=== PATIENT | male | born 1970 | race Caucasian/White ===

== ENCOUNTER 2017-01-19 18:48 | Observation (INO) | payer MEDICARE, MEDICAID ==
[~2017-01-19] VITALS: Ht 188 cm; Wt 119.2 kg
[~2017-01-19 18:48] MED LIST: ALBU8.5H5 INH; FAMO-79 PO; NASAL SPRAY NAS; PALI1.5T PO; RISP0.2518 PO
[2017-01-19 19:34] LABS: DAU SCREEN DISCLAIMER
[2017-01-19 19:41] LABS: HEMOGLOBIN 14.6 g/dL (13.7-18.0)
[2017-01-19 19:53] LABS: ASPARTATE AMINO TRANSFERASE 27 U/L (15-37); BLOOD UREA NITROGEN 12 mg/dL (7-18)
[2017-01-19] MEDS ORDERED: FAMO40TA61 PO (19:57)
[2017-01-19 20:00] LABS: ACETAMINOPHEN < 2 mcg/mL (10-30)
[2017-01-20] MEDS ORDERED: FAMOTIDINE 20 MG TABLET ONE (01:58)
[2017-01-20] MEDS ORDERED: FAMOTIDINE 20 MG TABLET PO ONE (02:00)
[2017-01-20 09:42] VITALS: BP 120/80
[2017-01-21] MEDS ORDERED: FAMOTIDINE 20 MG TABLET PO ONE (02:30)
[2017-01-21] MEDS ORDERED: ZIPRASIDONE 20 MG INJ IM ONE ×4 (02:30→20:00)
[2017-01-21] MEDS ORDERED: FAMOTIDINE 20 MG TABLET ONE (02:48)
[2017-01-21] MEDS ORDERED: SODIUM CHLORIDE NASAL SPRAY 45ML BOTTLE NAS ONE (10:30)
[2017-01-21] MEDS ORDERED: POLYETHYLENE GLYCOL 17 GM PACKET PO PRN (10:30)
[2017-01-21] MEDS ORDERED: ACETAMINOPHEN 325 MG TABLET PO PRN (10:30)
[2017-01-21] MEDS ORDERED: NASAL SPRAY MC SCH (11:30)
[2017-01-21 11:52] VITALS: BP 120/80
[2017-01-21] MEDS: FAMOTIDINE 40 MG TABLET PO SCH (12:18)
[2017-01-21 19:42] VITALS: BP 120/78
[2017-01-22 06:04] LABS: HEMOGLOBIN 15.7 g/dL (13.7-18.0)
[2017-01-22 06:33] LABS: ASPARTATE AMINO TRANSFERASE 23 U/L (15-37); BLOOD UREA NITROGEN 18 mg/dL (7-18)
[2017-01-22 07:56] VITALS: BP 127/88
[2017-01-22] MEDS: FAMOTIDINE 40 MG TABLET PO SCH ×2 (08:20→22:16)
[2017-01-22] MEDS: SENNA/DOCUSATE TABLET PO SCH (08:21)
[2017-01-22] MEDS: ZIPRASIDONE 20 MG INJ IM PRN (18:24)
[2017-01-22 19:54] VITALS: BP 120/78
[2017-01-23 07:36] VITALS: BP 128/66
[2017-01-23] MEDS: SENNA/DOCUSATE TABLET PO SCH (08:16)
[2017-01-23] MEDS: FAMOTIDINE 40 MG TABLET PO SCH ×2 (08:17→20:11)
[2017-01-23] MEDS: ZIPRASIDONE 20 MG INJ IM PRN ×2 (08:50→20:14)
[2017-01-23 19:20] VITALS: BP 138/87
[2017-01-24 07:43] VITALS: BP 125/84
[2017-01-24] MEDS: FAMOTIDINE 40 MG TABLET PO SCH ×2 (07:46→20:49)
[2017-01-24] MEDS: SENNA/DOCUSATE TABLET PO SCH (08:08)
[2017-01-24] MEDS: LORazepam 1MG TABLET PO PRN (08:54)
[2017-01-24 19:19] VITALS: BP 144/90
[2017-01-24] MEDS: ZIPRASIDONE 20 MG INJ IM PRN (20:50)
[2017-01-25] MEDS: LORazepam 1MG TABLET PO PRN (06:23)
[2017-01-25 07:55] VITALS: BP 127/79
[2017-01-25] MEDS: ZIPRASIDONE 20 MG INJ IM PRN (08:13)
[2017-01-25] MEDS: FAMOTIDINE 40 MG TABLET PO SCH ×2 (08:13→20:55)
[2017-01-25] MEDS: SENNA/DOCUSATE TABLET PO SCH (08:13)
[2017-01-25] MEDS ORDERED: PALI234D IM (10:41)
[2017-01-25] MEDS ORDERED: LORazepam 2 MG/ML, 1ML IM PRN (12:00)
[2017-01-25 19:35] VITALS: BP 132/89
[2017-01-25] MEDS: ARIPIPRAZOLE 10 MG TABLET PO SCH (20:24)
[2017-01-26 07:31] VITALS: BP 131/88
[2017-01-26] MEDS: FAMOTIDINE 40 MG TABLET PO SCH ×2 (08:15→20:18)
[2017-01-26] MEDS: SENNA/DOCUSATE TABLET PO SCH (08:15)
[2017-01-26] MEDS: ARIPIPRAZOLE 10 MG TABLET PO SCH ×2 (08:15→20:18)
[2017-01-26] MEDS: ZIPRASIDONE 20 MG INJ IM PRN ×2 (08:36→23:44)
[2017-01-26 19:42] VITALS: BP 133/90
[2017-01-27 07:16] VITALS: BP 126/81
[2017-01-27] MEDS: ARIPIPRAZOLE 10 MG TABLET PO SCH ×2 (08:25→22:16)
[2017-01-27] MEDS: ZIPRASIDONE 20 MG INJ IM PRN ×2 (08:25→20:20)
[2017-01-27] MEDS: SENNA/DOCUSATE TABLET PO SCH (08:25)
[2017-01-27] MEDS: FAMOTIDINE 40 MG TABLET PO SCH ×2 (08:25→22:15)
[2017-01-27] MEDS: LORazepam 2 MG/ML, 1ML IM PRN (18:10)
[2017-01-27 19:16] VITALS: BP 131/89
[2017-01-28 07:53] VITALS: BP 114/88
[2017-01-28] MEDS: ARIPIPRAZOLE 10 MG TABLET PO SCH (08:34)
[2017-01-28] MEDS: ZIPRASIDONE 20 MG INJ IM PRN (08:43)
[2017-01-28] MEDS: FAMOTIDINE 40 MG TABLET PO SCH ×2 (08:44→21:00)
[2017-01-28] MEDS: SENNA/DOCUSATE TABLET PO SCH (08:45)
[2017-01-28] MEDS ORDERED: OLANZAPINE 10 MG INJ IM PRN (17:00)
[2017-01-28] MEDS: LORazepam 2 MG/ML, 1ML IM SCH (17:38)
[2017-01-28 20:00] VITALS: BP 122/80
[2017-01-28] MEDS: ZIPRASIDONE 20 MG INJ IM SCH ×2 (20:17→21:10)
[2017-01-28] MEDS: LORazepam 2 MG/ML, 1ML IM PRN (20:28)
[2017-01-28] MEDS ORDERED: ZIPRASIDONE 20 MG INJ IM SCH (21:00)
[2017-01-28] MEDS ORDERED: ARIPIPRAZOLE 15 MG TABLET PO SCH (21:00)
[2017-01-29] MEDS: OLANZAPINE 10 MG INJ IM PRN ×2 (00:40→15:28)
[2017-01-29] MEDS: LORazepam 2 MG/ML, 1ML IM PRN (00:41)
[2017-01-29 08:24] VITALS: BP 116/76
[2017-01-29] MEDS: LORazepam 2 MG/ML, 1ML IM SCH ×2 (08:32→20:19)
[2017-01-29] MEDS: ZIPRASIDONE 20 MG INJ IM SCH ×2 (08:32→20:19)
[2017-01-29] MEDS: SENNA/DOCUSATE TABLET PO SCH (08:33)
[2017-01-29] MEDS: FAMOTIDINE 40 MG TABLET PO SCH ×2 (08:33→21:00)
[2017-01-29 19:38] VITALS: BP 108/75
[2017-01-30] MEDS: LORazepam 2 MG/ML, 1ML IM PRN (01:12)
[2017-01-30 07:55] VITALS: BP 118/78
[2017-01-30] MEDS: ZIPRASIDONE 20 MG INJ IM SCH ×2 (08:04→20:40)
[2017-01-30] MEDS: LORazepam 2 MG/ML, 1ML IM SCH ×2 (08:05→20:40)
[2017-01-30] MEDS: SENNA/DOCUSATE TABLET PO SCH (08:11)
[2017-01-30] MEDS: FAMOTIDINE 40 MG TABLET PO SCH ×2 (08:12→20:40)
[2017-01-30 19:36] VITALS: BP 143/96
[2017-01-31 07:15] VITALS: BP 127/90
[2017-01-31] MEDS: ZIPRASIDONE 20 MG INJ IM SCH (08:25)
[2017-01-31] MEDS: SENNA/DOCUSATE TABLET PO SCH (08:27)
[2017-01-31] MEDS: LORazepam 2 MG/ML, 1ML IM SCH (08:29)
[2017-01-31] MEDS: FAMOTIDINE 40 MG TABLET PO SCH (09:00)
[2017-01-31] MEDS: OLANZAPINE 10 MG INJ IM PRN (11:32)
[2017-01-31] MEDS ORDERED: ARIPIPRAZOLE 15 MG TABLET PO ONE (14:52)
[2017-02-01] MEDS ORDERED: ARIPIPRAZOLE 15 MG TABLET PO SCH (09:00)
[2017-02-03] MEDS ORDERED: ARIPIPRAZOLE 400 MG INJ NC IM PRN (18:30)
== END 2017-01-31 17:27 ==
LOC: ED 22:10 → EDIP 01-21 09:08 → 3E 01-21 10:41
PROVIDERS: ADMIT Hospitalist; ATTEND Hospitalist
DX: R45.851 Suicidal ideations (principal); F20.0 Paranoid schizophrenia; E66.9 Obesity, unspecified; F15.159 Other stimulant abuse with stimulant-induced psychotic disorder, unspecified; R45.850 Homicidal ideations; F15.10 Other stimulant abuse, uncomplicated; E16.2 Hypoglycemia, unspecified; K58.9 Irritable bowel syndrome, unspecified; J44.9 Chronic obstructive pulmonary disease, unspecified; F12.10 Cannabis abuse, uncomplicated; Z98.890 Other specified postprocedural states; Z87.891 Personal history of nicotine dependence
CPT/HCPCS: 36415; 80053; 80307; 80329; 84439; 84443; 85025; 85610; 93005; 96372; 99285; G0378; J2060; J3486; G0480

== ENCOUNTER 2017-06-07 01:04 | Emergency (ER) | payer MEDICARE, MEDICAID ==
[~2017-06-07] VITALS: Ht 188 cm; Wt 115.9 kg
[~2017-06-07 01:04] MED LIST changes: +FAMO40TA61 PO; +PALI234D IM
[2017-06-07 01:05] VITALS: BP 152/88
[2017-06-07] MEDS ORDERED: ZIPRASIDONE 20 MG INJ IM ONE ×2 (02:00→02:31)
== END 2017-06-07 03:08 | disposition left against medical advice (07) ==
LOC: ED 02:50
DX: R10.30 Lower abdominal pain, unspecified (principal); R30.0 Dysuria
CPT/HCPCS: 81003; 99283

== ENCOUNTER 2017-10-24 14:45 | Emergency (ER) | payer MEDICARE, MEDICAID ==
[~2017-10-24] VITALS: Ht 188 cm; Wt 110.9 kg
[2017-10-24 15:16] VITALS: BP 130/82
[2017-10-24] MEDS ORDERED: BACITRACIN ZINC OINT 500U/GM, 0.9 GM ONE ×2 (16:05→16:20)
== END 2017-10-24 16:37 | disposition home or self-care (01) ==
LOC: ED 16:25
DX: L03.012 Cellulitis of left finger (principal); J44.9 Chronic obstructive pulmonary disease, unspecified; F17.210 Nicotine dependence, cigarettes, uncomplicated
CPT/HCPCS: 99283

== ENCOUNTER 2018-02-13 00:42 | Emergency (ER) | payer MEDICARE, MEDICAID ==
[~2018-02-13] VITALS: Ht 188 cm; Wt 100.3 kg
[2018-02-13 01:23] VITALS: BP 111/74
== END 2018-02-13 02:09 | disposition left against medical advice (07) ==
LOC: ED 02:03
DX: J06.9 Acute upper respiratory infection, unspecified (principal); J44.9 Chronic obstructive pulmonary disease, unspecified; Z72.89 Other problems related to lifestyle; Z75.9 Unspecified problem related to medical facilities and other health care
CPT/HCPCS: 99281

== ENCOUNTER 2018-02-14 18:33 | Inpatient (IN) | payer MEDICARE, MEDICAID ==
[~2018-02-14] VITALS: Ht 188 cm; Wt 101.7 kg
[2018-02-14] MEDS ORDERED: LIDOCAINE 1%, 10ML INFIL ONE (20:00)
[2018-02-14] MEDS ORDERED: LIDOCAINE-MPF 1%, 5ML ONE (21:33)
[2018-02-14] MEDS ORDERED: morphine SULFATE 10 MG/ML, 1ML IVPush ONE (23:30)
[2018-02-14] MEDS ORDERED: morphine SULFATE 10 MG/ML, 1ML ONE (23:31)
[2018-02-15] MEDS ORDERED: ONDANSETRON ODT 4 MG PO PRN (00:30)
[2018-02-15] MEDS ORDERED: ACETAMINOPHEN 325 MG TABLET PO PRN (00:30)
[2018-02-15] MEDS ORDERED: BISACODYL 10 MG SUPP PR PRN (00:30)
[2018-02-15] MEDS ORDERED: POLYETHYLENE GLYCOL 17 GM PACKET PO PRN (00:30)
[2018-02-15 00:42] VITALS: BP 132/77
[2018-02-15] MEDS: OXYcodone IR 5MG TABLET PO PRN (01:21)
[2018-02-15] MEDS ORDERED: MORPHINE SULFATE 4 MG/ML, 1ML ONE ×5 (04:11→20:39)
[2018-02-15] MEDS: morphine SULFATE 10 MG/ML, 1ML IVPush PRN ×5 (04:15→20:46)
[2018-02-15 04:44] VITALS: BP 116/70
[2018-02-15 05:15] LABS: BASOPHILS # (AUTO) 0.04 x10^3/uL (0-0.1); BASOPHILS % (AUTO) 0 % (0-1); EOSINOPHILS % (AUTO) 1 % (1-7); LYMPHOCYTES # (AUTO) 1.62 x10^3/uL (1-3.4); LYMPHOCYTES % (AUTO) 18 % (22-44); MD NO; MEAN CORPUSCULAR HEMOGLOBIN 31.5 pg (27.5-34.5); MEAN CORPUSCULAR HGB CONC 34.3 g/dL (33.2-36.2); MEAN CORPUSCULAR VOLUME 92.1 fL (81-97); MEAN PLATELET VOLUME 7.9 fL (7.4-10.4); MONOCYTES # (AUTO) 0.93 x10^3/uL (0.2-0.8); MONOCYTES % (AUTO) 10 % (2-9); NEUTROPHILS # (AUTO) 6.38 x10^3/uL (1.8-6.8); NEUTROPHILS % (AUTO) 70 % (42-75); PLATELET COUNT 240 x10^3/uL (130-400); RED BLOOD COUNT 4.86 x10^6/uL (4.38-5.82); RED CELL DISTRIBUTION WIDTH 14.2 % (9.4-14.8)
[2018-02-15 05:27] LABS: ALBUMIN 3.1 g/dL (3.4-5.0); ANION GAP 7 mmol/L (5-15); CALCIUM 8.6 mg/dL (8.5-10.1); CHLORIDE 108 mmol/L (98-107)
[2018-02-15 05:32] LABS: ALANINE AMINOTRANSFERASE 173 U/L (12-78); ALKALINE PHOSPHATASE 81 U/L (45-117); BILIRUBIN,TOTAL 0.7 mg/dL (0.2-1.0); CREATININE 1.06 mg/dL (0.7-1.3)
[2018-02-15] MEDS: SENNA/DOCUSATE TABLET PO SCH (09:00)
[2018-02-15] MEDS: POLYTRIM OPHTH 10ML RIGHTEYE SCH ×3 (11:50→20:47)
[2018-02-15] MEDS: SODIUM CHLORIDE FLUSH 10ML SYR IVF SCH ×2 (11:51→21:00)
[2018-02-15 13:25] VITALS: BP 112/55
[2018-02-15 19:59] VITALS: BP 120/61
[2018-02-16 02:07] VITALS: BP 131/67
[2018-02-16 05:38] LABS: BASOPHILS # (AUTO) 0.02 x10^3/uL (0-0.1); BASOPHILS % (AUTO) 0 % (0-1); EOSINOPHILS # (AUTO) 0.17 x10^3/uL (0-0.4); EOSINOPHILS % (AUTO) 2 % (1-7); LYMPHOCYTES # (AUTO) 1.74 x10^3/uL (1-3.4); LYMPHOCYTES % (AUTO) 23 % (22-44); MD NO; MEAN CORPUSCULAR HEMOGLOBIN 31.7 pg (27.5-34.5); MEAN CORPUSCULAR HGB CONC 34.2 g/dL (33.2-36.2); MEAN CORPUSCULAR VOLUME 92.7 fL (81-97); MEAN PLATELET VOLUME 7.8 fL (7.4-10.4); MONOCYTES # (AUTO) 0.63 x10^3/uL (0.2-0.8); MONOCYTES % (AUTO) 8 % (2-9); NEUTROPHILS # (AUTO) 4.94 x10^3/uL (1.8-6.8); NEUTROPHILS % (AUTO) 66 % (42-75); PLATELET COUNT 198 x10^3/uL (130-400)
[2018-02-16 05:46] LABS: ALBUMIN 2.8 g/dL (3.4-5.0); ANION GAP 7 mmol/L (5-15); CALCIUM 8.3 mg/dL (8.5-10.1); CHLORIDE 111 mmol/L (98-107)
[2018-02-16 05:49] LABS: ALANINE AMINOTRANSFERASE 164 U/L (12-78); ALKALINE PHOSPHATASE 76 U/L (45-117); BILIRUBIN,TOTAL 0.5 mg/dL (0.2-1.0); CREATININE 0.83 mg/dL (0.7-1.3); TOTAL PROTEIN 6.6 g/dL (6.4-8.2)
[2018-02-16 06:37] VITALS: BP 117/76
[2018-02-16] MEDS ORDERED: MORPHINE SULFATE 4 MG/ML, 1ML ONE ×3 (07:29→21:00)
[2018-02-16] MEDS: morphine SULFATE 10 MG/ML, 1ML IVPush PRN ×3 (07:36→21:18)
[2018-02-16] MEDS: SODIUM CHLORIDE FLUSH 10ML SYR IVF SCH ×2 (07:36→21:18)
[2018-02-16] MEDS: POLYTRIM OPHTH 10ML RIGHTEYE SCH (07:36)
[2018-02-16] MEDS: SENNA/DOCUSATE TABLET PO SCH (09:00)
[2018-02-16] MEDS ORDERED: LIDOCAINE-MPF 1%, 2ML ONE (11:09)
[2018-02-16] MEDS ORDERED: MUPIROCIN OINT 2%, 22GM ONE (11:09)
[2018-02-16] MEDS ORDERED: BALANCED SALT OPHTH IRRIG SOLN 18ML ONE (11:09)
[2018-02-16] MEDS ORDERED: BACITRACIN OINT 500U/GM, 15 GM ONE (11:09)
[2018-02-16] MEDS ORDERED: OXYMETAZOLINE NASAL SPRAY 0.05%, 15ML ONE (11:10)
[2018-02-16] MEDS ORDERED: EPINEPHRINE 1 MG/ML, 1ML ONE (11:10)
[2018-02-16] MEDS ORDERED: COCAINE TOPICAL SOLN 4%, 4ML ONE (11:10)
[2018-02-16] MEDS ORDERED: GABAPENTIN 300 MG CAPSULE PO ONE (11:35)
[2018-02-16] MEDS ORDERED: GABAPENTIN 300 MG CAPSULE ONE (11:44)
[2018-02-16] MEDS ORDERED: ONDANSETRON ODT 8 MG ONE (11:45)
[2018-02-16] MEDS ORDERED: OxyconTIN ER 10 MG TAB.ER ONE (11:46)
[2018-02-16] MEDS ORDERED: MIDAZOLAM 1 MG/ML, 2ML ONE (11:52)
[2018-02-16] MEDS ORDERED: FENTANYL PF 250 MCG/5ML ONE (11:52)
[2018-02-16] MEDS ORDERED: LIDOCAINE GEL 2%, 5ML ONE (11:53)
[2018-02-16] MEDS ORDERED: GLYCOPYRROLATE 0.2MG/1ML, 5ML ONE (11:56)
[2018-02-16] MEDS ORDERED: OxyconTIN ER 10 MG TAB.ER PO ONE (12:00)
[2018-02-16] MEDS ORDERED: ONDANSETRON ODT 8 MG PO ONE (12:00)
[2018-02-16] MEDS ORDERED: CEFAZOLIN 1,000 MG ONE (12:07)
[2018-02-16] MEDS ORDERED: DEXAMETHASONE 4 MG/ML, 1ML ONE (12:07)
[2018-02-16] MEDS ORDERED: LIDOCAINE-MPF 2% ,5ML ONE (12:07)
[2018-02-16] MEDS ORDERED: PROPOFOL 10 MG/ML, 20ML ONE (12:07)
[2018-02-16] MEDS ORDERED: ONDANSETRON 2MG/ML, 2ML ONE (12:07)
[2018-02-16] MEDS ORDERED: SUCCINYLCHOLINE 20 MG/ML, 10ML ONE (12:08)
[2018-02-16] MEDS ORDERED: PROMETHAZINE 25 MG/ML, 1ML IV PRN (12:30)
[2018-02-16] MEDS ORDERED: MEPERIDINE/PF 25MG/0.5ML IVPush PRN (12:30)
[2018-02-16] MEDS ORDERED: morphine SULFATE 10 MG/ML, 1ML IV PRN (12:30)
[2018-02-16] MEDS ORDERED: OXYcodone 5 MG/5 ML ORAL.SOL UDC PO PRN (12:30)
[2018-02-16] MEDS ORDERED: LABETALOL 5MG/ML, 20ML IV PRN (12:30)
[2018-02-16] MEDS ORDERED: ONDANSETRON ODT 4 MG PO PRN (12:30)
[2018-02-16] MEDS ORDERED: ALBUTEROL/IPRATROPIUM 2.5MG/0.5MG, 3 ML NPPB PRN (12:30)
[2018-02-16] MEDS ORDERED: DIAZEPAM 5 MG/ML, 2ML IVPush PRN (12:30)
[2018-02-16] MEDS ORDERED: ONDANSETRON 2MG/ML, 2ML IVPush PRN (12:30)
[2018-02-16] MEDS ORDERED: hydrALAzine 20 MG/ML, 1ML IV PRN (12:30)
[2018-02-16] MEDS ORDERED: MIDAZOLAM 1 MG/ML, 2ML IV PRN (12:30)
[2018-02-16] MEDS ORDERED: LORazepam 2 MG/ML, 1ML IVPush PRN (12:30)
[2018-02-16] MEDS ORDERED: ALBUTEROL SULFATE 2.5 MG/3 ML NPPB PRN (12:30)
[2018-02-16] MEDS ORDERED: EYE STREAM RIGHTEYE ONE (12:31)
[2018-02-16] MEDS ORDERED: OXYMETAZOLINE NASAL SPRAY 0.05%, 15ML NAS ONE (12:32)
[2018-02-16] MEDS ORDERED: FENTANYL PF 100 MCG/2ML ONE ×2 (12:55→14:15)
[2018-02-16] MEDS: FENTANYL PF 100 MCG/2ML IV PRN ×2 (14:18→14:29)
[2018-02-16 15:24] VITALS: BP 113/68
[2018-02-16] MEDS ORDERED: ALBUTEROL HFA 90 MCG/SPRAY INH PRN (15:30)
[2018-02-16] MEDS ORDERED: RISPERIDONE MC SCH ×2 (16:00)
[2018-02-16] MEDS ORDERED: PALIPERIDONE MC SCH ×2 (16:00)
[2018-02-16 19:28] VITALS: BP 110/66
[2018-02-16] MEDS: FAMOTIDINE 40 MG TABLET PO SCH (21:17)
[2018-02-17 01:29] VITALS: BP 127/79
[2018-02-17] MEDS ORDERED: MORPHINE SULFATE 4 MG/ML, 1ML ONE (02:20)
[2018-02-17] MEDS: morphine SULFATE 10 MG/ML, 1ML IVPush PRN (02:24)
[2018-02-17 07:02] VITALS: BP 108/55
[2018-02-17] MEDS: OXYcodone IR 5MG TABLET PO PRN ×2 (08:41→21:12)
[2018-02-17] MEDS: SENNA/DOCUSATE TABLET PO SCH (08:41)
[2018-02-17] MEDS: FAMOTIDINE 40 MG TABLET PO SCH ×2 (08:41→21:13)
[2018-02-17] MEDS: SODIUM CHLORIDE FLUSH 10ML SYR IVF SCH ×2 (08:41→21:13)
[2018-02-17 15:48] VITALS: BP 103/58
[2018-02-17 19:28] VITALS: BP 111/68
[2018-02-18 03:55] VITALS: BP 112/68
[2018-02-18 05:50] LABS: BASOPHILS # (AUTO) 0.04 x10^3/uL (0-0.1); BASOPHILS % (AUTO) 1 % (0-1); EOSINOPHILS # (AUTO) 0.09 x10^3/uL (0-0.4); EOSINOPHILS % (AUTO) 1 % (1-7); LYMPHOCYTES # (AUTO) 2.19 x10^3/uL (1-3.4); LYMPHOCYTES % (AUTO) 25 % (22-44); MD NO; MEAN CORPUSCULAR HEMOGLOBIN 31.4 pg (27.5-34.5); MEAN CORPUSCULAR HGB CONC 33.9 g/dL (33.2-36.2); MEAN CORPUSCULAR VOLUME 92.6 fL (81-97); MEAN PLATELET VOLUME 8.1 fL (7.4-10.4); MONOCYTES # (AUTO) 0.69 x10^3/uL (0.2-0.8); MONOCYTES % (AUTO) 8 % (2-9); NEUTROPHILS # (AUTO) 5.84 x10^3/uL (1.8-6.8); NEUTROPHILS % (AUTO) 66 % (42-75); PLATELET COUNT 179 x10^3/uL (130-400); RED BLOOD COUNT 4.38 x10^6/uL (4.38-5.82); RED CELL DISTRIBUTION WIDTH 13.7 % (9.4-14.8)
[2018-02-18 05:57] LABS: ANION GAP 7 mmol/L (5-15); CHLORIDE 112 mmol/L (98-107)
[2018-02-18 05:58] LABS: CREATININE 0.87 mg/dL (0.7-1.3)
[2018-02-18 07:54] VITALS: BP 112/67
[2018-02-18] MEDS: FAMOTIDINE 40 MG TABLET PO SCH ×2 (09:14→20:43)
[2018-02-18] MEDS: SENNA/DOCUSATE TABLET PO SCH ×2 (09:14→09:28)
[2018-02-18] MEDS: SODIUM CHLORIDE FLUSH 10ML SYR IVF SCH ×2 (09:15→20:43)
[2018-02-18] MEDS: OXYcodone IR 5MG TABLET PO PRN ×2 (14:01→18:37)
[2018-02-18 20:50] VITALS: BP 108/64
[2018-02-19 08:00] VITALS: BP 137/90
[2018-02-19] MEDS: FAMOTIDINE 40 MG TABLET PO SCH (09:17)
[2018-02-19] MEDS: SODIUM CHLORIDE FLUSH 10ML SYR IVF SCH (09:19)
== END 2018-02-19 17:00 | disposition left against medical advice (07) | DRG 113 ==
LOC: ED 23:37 → EDIP 02-15 00:03 → 4NOR 02-15 00:25
PROVIDERS: ADMIT Hospitalist; ATTEND Hospitalist
PROC: 0HQ1XZZ Repair Face Skin, External Approach (ICD-10-PCS; 2018-02-15)
PROC: 0NSBXZZ Reposition Nasal Bone, External Approach (ICD-10-PCS; principal; 2018-02-16 11:45)
PROC: 0NSP04Z Reposition Right Orbit with Internal Fixation Device, Open Approach (ICD-10-PCS; 2018-02-16 11:45)
DX: S02.31XA Fracture of orbital floor, right side, initial encounter for closed fracture (principal); E44.0 Moderate protein-calorie malnutrition; F20.0 Paranoid schizophrenia; H11.31 Conjunctival hemorrhage, right eye; S01.01XA Laceration without foreign body of scalp, initial encounter; S02.2XXA Fracture of nasal bones, initial encounter for closed fracture; Z88.8 Allergy status to other drugs, medicaments and biological substances; Z68.28 Body mass index [BMI] 28.0-28.9, adult; F12.10 Cannabis abuse, uncomplicated; F41.1 Generalized anxiety disorder; I10 Essential (primary) hypertension; J32.9 Chronic sinusitis, unspecified; J44.9 Chronic obstructive pulmonary disease, unspecified; K58.9 Irritable bowel syndrome, unspecified; Y04.0XXA Assault by unarmed brawl or fight, initial encounter; Y93.89 Activity, other specified; Y92.89 Other specified places as the place of occurrence of the external cause; Y99.8 Other external cause status; Z59.0 Homelessness; Z86.72 Personal history of thrombophlebitis; Z87.891 Personal history of nicotine dependence; S01.81XA Laceration without foreign body of other part of head, initial encounter
CPT/HCPCS: 12013; 36415; 70450; 70486; 80048; 80053; 80074; 85025; 87521; 87806; 93005; 96374; 96376; C1713; J0171; J0690; J1100; J2250; J2405; J2704; J3010; J3490; Q0162; C1781; G0475; J0330; J2270

== ENCOUNTER 2018-12-08 19:08 | Emergency (ER) | payer MEDICARE, MEDICAID ==
[~2018-12-08] VITALS: Ht 188 cm; Wt 93.6 kg
--- NOTE | 2018-12-08 19:50 | NUR ---
PT PRESENTS TO ED WITH C/O RIGHT EYE PAIN AND BLURRED/DOUBLE VISION PRESENT AFTER EYE SURGERY 02/21 BUT WORSENING IN LAST 3-4 MONTHS. PT IS A&O, RESPS EVEN AND AND UNLABORED, RYAN. BRADEN DSOUZA AT BEDSIDE TO EVALUATE.
[2018-12-08] MEDS ORDERED: PROPARACAINE OPHTH 0.5%, 15ML ONE (19:56)
[2018-12-08 20:00] VITALS: BP 148/95
--- NOTE | 2018-12-08 20:17 | NUR ---
PT GIVEN DC INSTRUCTIONS. PT AOX4. RESPS EVEN AND UNLABORED. PT STATES EYE PAIN LEVEL REDUCED AT DC. PT AMB TO DC WITH STEADY GAIT. NO ACUTE DISTRESS AT DC.
== END 2018-12-08 20:18 | disposition home or self-care (01) ==
LOC: ED 20:17
DX: H10.021 Other mucopurulent conjunctivitis, right eye (principal); J44.9 Chronic obstructive pulmonary disease, unspecified; F29 Unspecified psychosis not due to a substance or known physiological condition; F20.0 Paranoid schizophrenia; Z72.9 Problem related to lifestyle, unspecified
CPT/HCPCS: 99283

== ENCOUNTER 2019-01-27 05:54 | Emergency (ER) | payer MEDICARE, MEDICAID ==
[~2019-01-27] VITALS: Ht 185.4 cm; Wt 81.0 kg
[2019-01-27 06:02] VITALS: BP 92/56
--- NOTE | 2019-01-27 06:13 | NUR ---
Pt uncooperative. Wants to harm himself and states the only way he knows how is to get naked and sleep under a bridge and now that it is getting warmer, it is harder to kill himself that way. Pt states he tried last week without success. Pt demanding pain medication and pepto-bismyl. Uncooperative with VS. Room cleared and secured. Belongings placed in locker.
[2019-01-27] MEDS ORDERED: PINK BISMUTH 87.33 MG/5 ML ORAL SUSP PO ONE (06:30)
[2019-01-27 06:37] LABS: BASOPHILS # (AUTO) 0.03 x10^3/uL (0-0.1); BASOPHILS % (AUTO) 1 % (0-1); EOSINOPHILS # (AUTO) 0.13 x10^3/uL (0-0.4); EOSINOPHILS % (AUTO) 2 % (1-7); LYMPHOCYTES # (AUTO) 1.26 x10^3/uL (1-3.4); LYMPHOCYTES % (AUTO) 22 % (22-44); MD NO; MEAN CORPUSCULAR HEMOGLOBIN 31.4 pg (27.5-34.5); MEAN CORPUSCULAR HGB CONC 34.1 g/dL (33.2-36.2); MEAN CORPUSCULAR VOLUME 92.1 fL (81-97); MEAN PLATELET VOLUME 7.8 fL (7.4-10.4); MONOCYTES # (AUTO) 0.62 x10^3/uL (0.2-0.8); MONOCYTES % (AUTO) 11 % (2-9); NEUTROPHILS # (AUTO) 3.72 x10^3/uL (1.8-6.8); NEUTROPHILS % (AUTO) 65 % (42-75); PLATELET COUNT 167 x10^3/uL (130-400); RED BLOOD COUNT 4.66 x10^6/uL (4.38-5.82); RED CELL DISTRIBUTION WIDTH 13.1 % (9.4-14.8)
--- NOTE | 2019-01-27 06:38 | NUR ---
SITTER AT DOOR FOR FREQUENT OBS
[2019-01-27 06:44] LABS: ALBUMIN 3.7 g/dL (3.4-5.0); ANION GAP 7 mmol/L (5-15); CALCIUM 8.4 mg/dL (8.5-10.1); CHLORIDE 110 mmol/L (98-107); CREATININE 0.81 mg/dL (0.7-1.3); SALICYLATE LEVEL < 1.7 mg/dL (2.8-20.0)
[2019-01-27 06:45] LABS: ACETAMINOPHEN < 2 mcg/mL (10-30)
[2019-01-27 08:00] LABS: AMPHETAMINE SCREEN, URINE Negative (Negative); BARBITURATE SCREEN, URINE Negative (Negative); BENZODIAZEPINE SCREEN, URINE Negative (Negative); CANNABINOID SCREEN, URINE Negative (Negative); COCAINE SCREEN, URINE Negative (Negative); METHADONE SCREEN, URINE Negative (Negative); OPIATE SCREEN, URINE Negative (Negative)
--- NOTE | 2019-01-27 08:13 | NUR ---
REC REPORT REQUESTED A SITTER PT RESTING
--- NOTE | 2019-01-27 10:00 | NUR ---
PT REMAINS SLEEEPING HAVE PROVIDED WARMING MEASURES PT COOPERATIVEN
--- NOTE | 2019-01-27 11:03 | NUR ---
SOC IN CONFERENCE W PT
== END 2019-01-27 12:00 | disposition home or self-care (01) ==
LOC: ED 06:13
DX: F33.1 Major depressive disorder, recurrent, moderate (principal); F15.10 Other stimulant abuse, uncomplicated; J44.9 Chronic obstructive pulmonary disease, unspecified; F41.9 Anxiety disorder, unspecified; F20.9 Schizophrenia, unspecified; F41.1 Generalized anxiety disorder
CPT/HCPCS: 36415; 80048; 80307; 80329; 82040; 85025; 99284; G0480

== ENCOUNTER 2019-04-14 03:10 | Inpatient (IN) | payer MEDICARE, MEDICAID ==
[~2019-04-14] VITALS: Ht 188 cm; Wt 90.1 kg
[2019-04-14] MEDS ORDERED: SODIUM CHLORIDE FLUSH 10ML SYR IVF ONE (03:30)
[2019-04-14] MEDS ORDERED: SODIUM CHLORIDE 0.9% 1,000ML IVBOLUS ONE (03:30)
--- NOTE | 2019-04-14 03:39 | NUR ---
PT TO US
[2019-04-14 03:50] LABS: BASOPHILS # (AUTO) 0.07 x10^3/uL (0-0.1); BASOPHILS % (AUTO) 1 % (0-1); EOSINOPHILS # (AUTO) 0.14 x10^3/uL (0-0.4); EOSINOPHILS % (AUTO) 1 % (1-7); LYMPHOCYTES % (AUTO) 13 % (22-44); MD NO; MEAN CORPUSCULAR HEMOGLOBIN 31.9 pg (27.5-34.5); MEAN CORPUSCULAR HGB CONC 33.4 g/dL (33.2-36.2); MEAN CORPUSCULAR VOLUME 95.4 fL (81-97); MEAN PLATELET VOLUME 7.9 fL (7.4-10.4); MONOCYTES # (AUTO) 0.97 x10^3/uL (0.2-0.8); MONOCYTES % (AUTO) 8 % (2-9); NEUTROPHILS # (AUTO) 8.86 x10^3/uL (1.8-6.8); NEUTROPHILS % (AUTO) 77 % (42-75); PLATELET COUNT 198 x10^3/uL (130-400); RED CELL DISTRIBUTION WIDTH 13.3 % (9.4-14.8)
[2019-04-14 03:57] LABS: ALANINE AMINOTRANSFERASE 67 U/L (12-78); ALBUMIN 3.4 g/dL (3.4-5.0); ANION GAP 6 mmol/L (5-15); CALCIUM 8.9 mg/dL (8.5-10.1); CHLORIDE 106 mmol/L (98-107); CREATININE 0.97 mg/dL (0.7-1.3)
[2019-04-14 03:59] LABS: ALKALINE PHOSPHATASE 75 U/L (45-117); BILIRUBIN,TOTAL 0.6 mg/dL (0.2-1.0); TOTAL PROTEIN 7.1 g/dL (6.4-8.2)
--- NOTE | 2019-04-14 04:57 | NUR ---
IV ESTABLISHED. PT MEDICATED PER EMAR. 5 RIGHTS ADDRESSED.
[2019-04-14] MEDS ORDERED: AMPICILLIN/SULBACTAM 3 GM in SODIUM CHLORIDE 0.9% 100 ML IV ONE (05:00)
[2019-04-14] MEDS ORDERED: VANCOMYCIN 1,800 MG in SODIUM CHLORIDE 0.9% 250 ML IV ONE (05:00)
[2019-04-14] MEDS ORDERED: VANCOMYCIN PER PHARMACY MC PRN (05:00)
--- NOTE | 2019-04-14 05:26 | NUR ---
REPORT TO HEIDI KWAN
[2019-04-14] MEDS: OXYcodone/APAP 5/325MG TABLET PO PRN (06:18)
[2019-04-14 06:31] VITALS: BP 146/97
[2019-04-14] MEDS ORDERED: SODIUM CHLORIDE 0.9% 1,000 ML IV SCH (07:53)
[2019-04-14] MEDS ORDERED: LABETALOL 5MG/ML, 20ML IVPush PRN (08:00)
[2019-04-14] MEDS ORDERED: ONDANSETRON ODT 4 MG PO PRN (08:00)
[2019-04-14] MEDS ORDERED: ONDANSETRON 2MG/ML, 2ML IVPush PRN (08:00)
[2019-04-14] MEDS: SENNA/DOCUSATE TABLET PO SCH (09:00)
[2019-04-14 10:15] LABS: FREE T4 (FREE THYROXINE) 1.14 ng/dL (0.76-1.46)
[2019-04-14 10:37] LABS: MICROSCOPIC NOT IND
[2019-04-14 10:38] LABS: CULTURE INDICATED? NO
[2019-04-14 10:48] LABS: AMPHETAMINE SCREEN, URINE Positive (Negative); BARBITURATE SCREEN, URINE Negative (Negative); BENZODIAZEPINE SCREEN, URINE Negative (Negative); CANNABINOID SCREEN, URINE Positive (Negative); COCAINE SCREEN, URINE Negative (Negative); METHADONE SCREEN, URINE Negative (Negative); OPIATE SCREEN, URINE Negative (Negative)
[2019-04-14] MEDS: CLINDAMYCIN PMX 900MG/50ML 50 ML IV SCH ×2 (12:17→20:05)
[2019-04-14] MEDS: PINK BISMUTH 87.33 MG/5 ML ORAL SUSP PO SCH ×3 (12:17→20:05)
[2019-04-14 17:15] VITALS: BP 126/80
[2019-04-14 20:39] VITALS: BP 106/65
[2019-04-15 02:25] VITALS: BP 106/68
[2019-04-15] MEDS: PINK BISMUTH 87.33 MG/5 ML ORAL SUSP PO SCH ×6 (04:00→20:57)
[2019-04-15] MEDS: CLINDAMYCIN PMX 900MG/50ML 50 ML IV SCH ×2 (04:28→12:05)
[2019-04-15 06:58] VITALS: BP 107/69
[2019-04-15 06:58] LABS: BASOPHILS # (AUTO) 0.05 x10^3/uL (0-0.1); BASOPHILS % (AUTO) 1 % (0-1); EOSINOPHILS % (AUTO) 3 % (1-7); LYMPHOCYTES # (AUTO) 1.95 x10^3/uL (1-3.4); LYMPHOCYTES % (AUTO) 21 % (22-44); MD NO; MEAN CORPUSCULAR HEMOGLOBIN 32.3 pg (27.5-34.5); MEAN CORPUSCULAR HGB CONC 33.6 g/dL (33.2-36.2); MEAN CORPUSCULAR VOLUME 96.4 fL (81-97); MEAN PLATELET VOLUME 8.1 fL (7.4-10.4); MONOCYTES # (AUTO) 0.93 x10^3/uL (0.2-0.8); MONOCYTES % (AUTO) 10 % (2-9); NEUTROPHILS # (AUTO) 6.07 x10^3/uL (1.8-6.8); NEUTROPHILS % (AUTO) 65 % (42-75); PLATELET COUNT 184 x10^3/uL (130-400); RED BLOOD COUNT 4.53 x10^6/uL (4.38-5.82); RED CELL DISTRIBUTION WIDTH 13.6 % (9.4-14.8)
[2019-04-15 07:11] LABS: ANION GAP 5 mmol/L (5-15); CALCIUM 8.7 mg/dL (8.5-10.1); CHLORIDE 111 mmol/L (98-107)
[2019-04-15 07:23] LABS: ALANINE AMINOTRANSFERASE 65 U/L (12-78); ALKALINE PHOSPHATASE 68 U/L (45-117); BILIRUBIN,TOTAL 0.7 mg/dL (0.2-1.0); CREATININE 0.74 mg/dL (0.7-1.3); TOTAL PROTEIN 7.2 g/dL (6.4-8.2)
[2019-04-15] MEDS: SENNA/DOCUSATE TABLET PO SCH (07:52)
[2019-04-15] MEDS: AMPICILLIN/SULBACTAM 3 GM in SODIUM CHLORIDE 0.9% 100 ML IV SCH ×2 (13:19→19:55)
[2019-04-15] MEDS ORDERED: VANCOMYCIN PER PHARMACY MC PRN (13:30)
[2019-04-15] MEDS ORDERED: PHARMACOKINETIC MONITORING MC PRN (13:30)
[2019-04-15 14:00] VITALS: BP 98/59
[2019-04-15] MEDS: VANCOMYCIN 1,800 MG in SODIUM CHLORIDE 0.9% 250 ML IV SCH (14:15)
[2019-04-15] MEDS: OXYcodone/APAP 5/325MG TABLET PO PRN (18:19)
[2019-04-15 19:30] VITALS: BP 97/64
[2019-04-16 00:51] VITALS: BP 104/72
[2019-04-16] MEDS: AMPICILLIN/SULBACTAM 3 GM in SODIUM CHLORIDE 0.9% 100 ML IV SCH ×4 (00:54→21:06)
[2019-04-16] MEDS: PINK BISMUTH 87.33 MG/5 ML ORAL SUSP PO SCH ×3 (00:54→07:45)
[2019-04-16] MEDS: VANCOMYCIN 1,800 MG in SODIUM CHLORIDE 0.9% 250 ML IV SCH ×2 (01:35→15:47)
[2019-04-16] MEDS: SENNA/DOCUSATE TABLET PO SCH (07:46)
[2019-04-16] MEDS: HEPARIN 5,000 UNITS/ML, 1ML SQ SCH ×2 (14:00→21:06)
[2019-04-16 21:01] VITALS: BP 111/72
[2019-04-17] MEDS: AMPICILLIN/SULBACTAM 3 GM in SODIUM CHLORIDE 0.9% 100 ML IV SCH ×3 (02:44→16:19)
[2019-04-17] MEDS: VANCOMYCIN 1,800 MG in SODIUM CHLORIDE 0.9% 250 ML IV SCH (03:34)
[2019-04-17] MEDS: HEPARIN 5,000 UNITS/ML, 1ML SQ SCH ×2 (06:00→14:00)
[2019-04-17 06:40] VITALS: BP 108/67
[2019-04-17] MEDS: SENNA/DOCUSATE TABLET PO SCH (09:00)
[2019-04-17] MEDS ORDERED: AMPI3VIA IV (15:10)
[2019-04-17 15:33] VITALS: BP 117/78
== END 2019-04-17 17:16 | disposition left against medical advice (07) | DRG 853 ==
LOC: ED 04:59 → EDIP 05:00 → 3NE 05:20
PROVIDERS: ADMIT Family Medicine; ATTEND Family Medicine
PROC: 0JBH0ZZ Excision of Left Lower Arm Subcutaneous Tissue and Fascia, Open Approach (ICD-10-PCS; principal; 2019-04-14)
DX: A41.9 Sepsis, unspecified organism (principal); G92 Toxic encephalopathy; L02.414 Cutaneous abscess of left upper limb; L03.114 Cellulitis of left upper limb; F20.0 Paranoid schizophrenia; T43.621A Poisoning by amphetamines, accidental (unintentional), initial encounter; E78.5 Hyperlipidemia, unspecified; F15.10 Other stimulant abuse, uncomplicated; F17.210 Nicotine dependence, cigarettes, uncomplicated; I10 Essential (primary) hypertension; J44.9 Chronic obstructive pulmonary disease, unspecified; K58.9 Irritable bowel syndrome, unspecified; B19.20 Unspecified viral hepatitis C without hepatic coma; R73.9 Hyperglycemia, unspecified; Z53.21 Procedure and treatment not carried out due to patient leaving prior to being seen by health care provider; Y92.89 Other specified places as the place of occurrence of the external cause; Z59.0 Homelessness; Z63.8 Other specified problems related to primary support group; Z86.72 Personal history of thrombophlebitis
CPT/HCPCS: 36415; 80053; 80307; 81003; 82550; 83605; 83735; 84100; 84145; 84439; 84443; 85025; 85651; 86140; 87040; 87070; 87147; 87205; 96365; G0378; J0295; J3370; J7030; J7050

== ENCOUNTER 2020-01-15 04:20 | Emergency (ER) | payer MEDICARE, MEDICAID ==
[~2020-01-15] VITALS: Ht 188 cm; Wt 91.4 kg
[~2020-01-15 04:20] MED LIST changes: +AMPI3VIA IV
[2020-01-15 04:39] VITALS: BP 136/82
[2020-01-15] MEDS ORDERED: FLUORESCEIN OPHTHALMIC 1 MG STRIP ONE (04:43)
[2020-01-15] MEDS ORDERED: PROPARACAINE OPHTH 0.5%, 15ML ONE (04:43)
[2020-01-15] MEDS ORDERED: FLUORESCEIN OPHTHALMIC 1 MG STRIP EACHEYE ONE (05:00)
[2020-01-15] MEDS ORDERED: PROPARACAINE OPHTH 0.5%, 15ML EACHEYE ONE (05:00)
== END 2020-01-15 05:56 ==
LOC: ED 05:50
DX: S05.01XA Injury of conjunctiva and corneal abrasion without foreign body, right eye, initial encounter (principal); H10.021 Other mucopurulent conjunctivitis, right eye; J44.9 Chronic obstructive pulmonary disease, unspecified; F20.9 Schizophrenia, unspecified; X58.XXXA Exposure to other specified factors, initial encounter; Y93.89 Activity, other specified; Y92.89 Other specified places as the place of occurrence of the external cause; Y99.8 Other external cause status
CPT/HCPCS: 99283